=== PATIENT | male | born 1950 | race Caucasian/White ===

== ENCOUNTER 2016-12-18 16:09 | Inpatient (IN) | payer OTHER ==
--- NOTE | ~2016-12-18 | CR72 ---
[facility] A Service [facility] RADIOLOGY TEXT RESULTS PATIENT: EZE EVERETT LOCATION: [place] [address] : [birth year] UNIT #: [id number] AGE: [address]: Praful Worrell MD SEX: M ORDER DR: [id number] [place] [id number] I MR#: [id number] Acc #: [id number] NAME: EZE EVERETT. : 1950 SEX: M STUDY DATE/TIME: 12/18/2016 16:20 UNIT: SEDOF ROOM: [facility] STUDY DESCRIPTION: CR Chest Single View Portable Attending Physician: Apryl Carballo M.D. Ordering Physician: Robby Cruz M.D. Primary Care Physician: Sami Pizarro M.D. MEDICAL IMAGING REPORT This report is preliminary unless electronic signature is present. EXAM Portable chest HISTORY Diaphoresis with dizziness and shortness of breath onset today. TECHNIQUE Single view chest was obtained and compared with 01/02/2011 FINDINGS Mild cardiomegaly is again seen and unchanged. The lungs and interstitial markings are mildly prominent in the lower lung laws but unchanged. This could reflect some basilar fibrosis. Vascular markings are normal and no pleural fluid is seen. IMPRESSION Mild cardiomegaly with basilar fibrosis. No active disease. No evidence of congestive heart failure. Dictated by... Warner Goins M.D. THIS IS AN ELECTRONICALLY VERIFIED REPORT Warner Goins M.D. at 12/20/2016 11:01 AM RLF/candida TD: 12/19/2016 10:49 JOB #: [id number] MEDICAL IMAGING REPORT [facility] A Service [facility] RADIOLOGY TEXT RESULTS PATIENT: EZE EVERETT LOCATION: [facility] : [birth year] UNIT #: [id number] AGE: [address]: Praful Worrell MD SEX: M ORDER DR: Page 1 of 1
--- NOTE | ~2016-12-18 | HP ---
Unit #: [id number] #: [id number] Patient: EZE EVERETT [id number] [address] [place], [place] [address] [id number] I MR#: [id number] NAME: EZE EVERETT. ROOM: 561 Age: 66 Sex: M Admission Date: 12/18/2016 : 1950 Attending Physician: Praful Worrell M.D. Primary Care Physician: Sami Pizarro M.D. HISTORY AND PHYSICAL HISTORY OF PRESENT ILLNESS This is a 66-year-old white male who is known to Dr. Worrell and has a history of coronary artery disease with cardiac catheterization in 2007 which showed 70% stenosis in the PDA. There was nonobstructive disease in the circumflex of 40% to 50%. He was continued on medical therapy. He is known to have hypertension, hyperlipidemia, and diabetes. The patient comes to the emergency room after a syncopal episode. He was at work at [employer], taking out the [employer]. He had the sudden onset of diaphoresis and felt as if he might pass out. EMS was dispatched and it was found that he had a heart rate in the 20s. On arrival to the emergency room, he was normotensive. EKG showed marked sinus bradycardia with a rate of 40 beats per minute. Rhythm strip from the emergency room shows pauses up to 2 seconds. He was subsequently admitted. Upon further questioning, the patient states he has had similar episodes three times in the past one month. He had no loss of consciousness on any occasion. He denied chest pain, palpitations but complained of dizziness. PAST MEDICAL HISTORY 1. Coronary artery disease, status post cardiac catheterization January 2008 which showed circumflex artery 40% to 50% stenosis. Mid right coronary artery 30%. 70% at the origin of the PDA. EF of 50%. 2. Hypertension. 3. Hyperlipidemia. 4. COPD. 5. Diabetes mellitus type 2. PAST SURGICAL HISTORY 1. Perirectal abscess I and D. 2. Cyst removed from his back. HOME MEDICATIONS 1. Glucophage 1000 mg b.i.d. 2. Zoloft 50 mg daily. 3. Diclofenac 75 mg b.i.d. p.r.n. 4. Flomax 0.4 mg daily. 5. Zyrtec 10 mg daily. 6. Vitamin D2 50,000 units weekly. 7. Losartan/hydrochlorothiazide 100/25 mg daily. ALLERGIES No known drug allergies. SOCIAL HISTORY The patient is . He works at [employer]. He quit smoking 7 years Unit #: [id number] #: [id number] Patient: EZE EVERETT ago. No alcohol or illicit drug use. FAMILY HISTORY Negative for coronary artery disease. REVIEW OF SYSTEMS CONSTITUTIONAL: Negative for fever or chills. Reports no weight loss or weight gain. HEENT: No headache, hearing or vision changes. No difficulty with swallowing. Positive for dizziness. CARDIOVASCULAR: No symptoms of angina. Unaware of palpitations. Positive for paroxysmal nocturnal dyspnea. Positive for near syncope. RESPIRATORY: Negative for dyspnea, cough or hemoptysis. GASTROINTESTINAL: No abdominal pain, nausea or vomiting. No constipation or melena. EXTREMITIES: Negative for lower extremity edema. PHYSICAL EXAMINATION VITAL SIGNS: Blood pressure 145/78, heart rate 81, temperature 98.7. GENERAL: This is a 66-year-old well-developed white male who is in no acute distress. NEUROLOGIC: He is awake, alert, and oriented. There is no focal weaknesses. NECK: Trachea is midline. No thyromegaly or lymphadenopathy. No jugular venous distention. LUNGS: Diminished breath sounds with faint expiratory wheezes. No rales or rhonchi. HEART: S1, S2. Heart sounds normal. No murmurs, rubs, or clicks. Regular rate and rhythm. ABDOMEN: Soft, nontender. Bowel sounds are present. EXTREMITIES: Without leg edema. SKIN: Warm and dry. DIAGNOSTIC STUDIES LABORATORY: Sodium 141, potassium 4.1, BUN 24, creatinine 0.9, magnesium 1.4. CK total 40, MB 1.9, MB index 2.4, troponin less than 0.05 to 0.03. BNP 507. TSH 2.29, free T4 1.07. White count 16.2, hemoglobin 14.8, hematocrit 44.5, platelet count 172. IMAGING: Chest x-ray shows mild cardiomegaly with basilar fibrosis. No active disease. CARDIOVASCULAR: EKG shows marked sinus bradycardia with a rate of 40 beats per minute with premature ventricular complex. Questionable old inferior infarct. IMPRESSION 1. Near syncope. 2. Probable sick sinus syndrome. 3. Symptomatic bradycardia. 4. Hypertension. 5. Obesity. 6. Hyperlipidemia. 7. Nonobstructive coronary artery disease per cardiac catheterization in 2007. PLAN 1. Will rule out progression of the patient's coronary artery disease Unit #: [id number] #: [id number] Patient: EZE EVERETT with exercise Cardiolite stress test. 2. Start on lipid-lowering agent given history of heart disease. 3. Anticoagulate with aspirin. 4. TSH is normal. 5. Continue dopamine drip for rate control. 6. 2D echocardiogram will be obtained to evaluate left ventricular systolic function. 7. No troponin elevation or EKG changes to suggest an acute cardiac event. 8. Will have Dr. Otero to see the patient. Dictated by Reinaldo Zambrano A.P.R.N. for Eric Álvarez/lynnette TD: 12/21/2016 21:54 JOB #: [id number] HISTORY AND PHYSICAL Page 1 of 1 X Reinaldo Zambrano APRN X HISTORY AND PHYSICAL
--- NOTE | ~2016-12-18 | ST ---
Unit #: [id number] #: [id number] Patient: EZE EVERETT [id number] [facility]. [address] [address] [id number] I MR#: [id number] NAME: EZE EVERETT. : 1950 SEX: M STUDY DATE/TIME: 12/20/2016 UNIT: C5B ROOM: [facility] STUDY DESCRIPTION: Attending Physician: Praful Worrell M.D. Primary Care Physician: Sami Pizarro M.D. CARDIOLOGY REPORT EXAM EKG portion of Lexiscan Cardiolite stress test. REASON FOR EXAM Chest pain. DISCUSSION Baseline EKG reveals sinus rhythm with a ventricular rate of 83 beats per minute, nonspecific ST-T wave changes noted. The patient originally exercised on the treadmill according to You protocol for 3 minutes and 17 seconds; however, the treadmill had to be stopped due to severe shortness of breath and foot pain. He was switched to a Lexiscan. A total of 0.4 mg of Lexiscan was injected per protocol followed by Cardiolite. There were no complaints of chest pain. There was some underlying sinus bradycardia at baseline but no pauses or high-degree AV blocks. Maximal heart rate was 90 beats per minute with maximal blood pressure of 166/77 mmHg. Test was stopped due to protocol completion. IMPRESSION 1. Negative EKG portion of Lexiscan Cardiolite stress test. 2. There were no complaints of chest pain. 3. There were no sustained arrhythmias noted; however, the patient had some baseline sinus bradycardia. There were no high-degree AV blocks or pauses noted. 4. There were no ST or T wave changes to suggest ischemia. 5. Please correlate with Cardiolite images. Dictated by... Roxane Villa APRN for Eric Lackey TD: 12/20/2016 16:06 JOB #: [id number] Unit #: [id number] #: [id number] Patient: EZE EVERETT CARDIOLOGY REPORT Page 1 of 1 X CARDIOLOGY REPORT
--- NOTE | ~2016-12-18 | EKG ---
PATIENT: EZE EVERETT UNIT #: [id number] Ventricular Rate: 73 BPM Atrial Rate: 73 BPM P-R Interval: 144 ms QRS Duration: 96 ms Q-T Interval: 392 ms QTC Calculation(Bezet): 431 ms P [place]: 67 degrees Calculated R [place]: 45 degrees Calculated T [place]: 39 degrees Diagnosis Line: Normal sinus rhythm Diagnosis Line: Cannot rule out Inferior infarct , age Diagnosis Line: undetermined Diagnosis Line: Abnormal ECG Diagnosis Line: When compared with ECG of 02-JAN-2011 16:40, Diagnosis Line: Vent. rate has increased BY 24 BPM Diagnosis Line: Confirmed by SUNSHINE LEA MD ([id number]) on Diagnosis Line: 12/19/2016 8:04:09 AM INTERPRETING MD: LEONORA BAH
--- NOTE | ~2016-12-18 | CR72 ---
[facility] A Service of [facility] & [facility] RADIOLOGY TEXT RESULTS PATIENT: EZE EVERETT LOCATION: [facility] 561-01 : [birth year] UNIT #: [id number] AGE: [address]: Apryl Carballo MD SEX: M ORDER DR: [id number] [facility] [address] [facility]. [place], [place] [address] [id number] I MR#: [id number] #: [id number] NAME: EZE EVERETT. : 1950 SEX: M STUDY DATE/TIME: 12/19/2016 5:56 UNIT: [facility] ROOM: [facility] STUDY DESCRIPTION: CR Chest Single View Portable Attending Physician: Apryl Carballo M.D. Ordering Physician: Apryl Carballo M.D. Primary Care Physician: Sami Pizarro M.D. MEDICAL IMAGING REPORT This report is preliminary unless electronic signature is present EXAM Frontal chest 12/19/16 HISTORY Shortness of air, wheezing, dyspnea in a 66-year-old male. Dizziness, bradycardia, symptoms began on December 18. Hypertension. History of myocardial infarction and congestive heart failure. TECHNIQUE Frontal chest compared 12/18/2016 FINDINGS Cardiac silhouette is enlarged but stable. The vascularity demonstrates slight prominence of the perihilar interstitial markings in the mid and lower lung zones left greater than right. This may reflect an element of mild vascular congestion. Asymmetric edema, atelectasis or infiltrate suspected on the left. No dense consolidation, pneumothorax or effusion. There is old healed granulomatous disease. IMPRESSION 1. Cardiomegaly. Subtle increased interstitial prominence in the perihilar and lower lung zones left greater than right. This may reflect an element of mild vascular congestion with asymmetric edema, asymmetric atelectasis or less likely faint interstitial infiltrate. Correlate with volume status. No significant evidence of congestive heart failure. 2. No dense consolidation or effusion and no pneumothorax. Old healed granulomatous disease. Dictated by... Robby Birch M.D. THIS IS AN ELECTRONICALLY VERIFIED REPORT [facility] A Service of [facility] & [facility] RADIOLOGY TEXT RESULTS PATIENT: EZE EVERETT LOCATION: [facility] 561-01 : [birth year] UNIT #: [id number] AGE: [address]: Apryl Carballo MD SEX: M ORDER DR: Robby Birch M.D. at 12/19/2016 2:30 PM Soha TD: 12/19/2016 12:32 JOB #: [id number] MEDICAL IMAGING REPORT COPY
--- NOTE | ~2016-12-18 | CO ---
Unit #: [id number] #: [id number] Patient: EZE EVERETT [id number] [address] [place], [place] [address] [id number] I MR#: [id number] NAME: EZE EVERETT. ROOM: 561 Age: 66 Sex: M Admission Date: 12/18/2016 : 1950 Attending Physician: Praful Worrell M.D. Primary Care Physician: Sami Pizarro M.D. CONSULTATION REPORT HISTORY OF PRESENT ILLNESS Mr. Everett is a 66-year-old white male, who presented to the emergency room because of some dizziness and increased shortness of breath with chest pain. It had been a gradual onset and intermittent in nature. He was taking out the trash at work and had chest pain and more shortness of breath. He also admitted to some nausea, lightheadedness, and weak all over with sweating. He is dyspneic on minimal exertion. One of his family members in the room said he cannot walk up a flight of steps without getting very short of breath. He is a reformed smoker x7 years. He is maintained on albuterol and Symbicort. He says that he rarely uses his albuterol. He has not noticed any increased lower extremity edema. No cough or purulent sputum. No fever or chills. PAST MEDICAL HISTORY Significant for COPD, coronary artery disease, hyperlipidemia, hypertension, diabetes, hypercholesterolemia. HOME MEDICATIONS Include Glucophage, Zoloft, diclofenac, Flomax, Zyrtec, vitamin B12, losartan/hydrochlorothiazide, albuterol, Symbicort. ALLERGIES No known allergies. SOCIAL HISTORY Reformed smoker x7 years pack year history. No alcohol or illicit drugs. FAMILY HISTORY No history of lung disease. REVIEW OF SYSTEMS CONSTITUTIONAL: No fevers or chills. HEENT: No rhinorrhea, nasal congestion. PULMONARY: As noted. CARDIAC: As noted. GI: Some nausea. No vomiting. : Does have some BPH and does have a history of loud snoring. has to sleep on the sofa. He says he does not want to use CPAP. NEUROLOGIC: No unilateral weakness or numbness. SKIN: No rash. No swollen joints. PHYSICAL EXAMINATION GENERAL: White male, in no distress. Unit #: [id number] #: [id number] Patient: EZE EVERETT VITAL SIGNS: Blood pressure is 130/66, pulse 71, respiratory rate 18, temperature 100.2. HEENT: Normocephalic, atraumatic. Pupils are equal, round, and reactive. Sclerae nonicteric. Nasal passages patent. Posterior pharynx clear. Mallampati IV. NECK: Supple, thick. Trachea midline. No cervical or supraclavicular lymphadenopathy. LUNGS: Reveal some expiratory wheezes bilaterally. Some rales in the bases. CARDIAC: Regular rate and rhythm. Could not appreciate murmur, rub, or gallop. ABDOMEN: Protuberant, nontender. Bowel sounds present. No hepatosplenomegaly appreciated. EXTREMITIES: Without clubbing, cyanosis, or edema. Diminished peripheral pulses. SKIN: Warm and dry. PSYCHIATRIC: Affect calm. NEUROLOGIC: Awake, alert, and oriented x3. Cranial nerves grossly intact. Muscle strength symmetric bilaterally. DIAGNOSTIC STUDIES LABORATORY RESULTS: Reviewed. Chemistry unremarkable. Glucose 162, creatinine 0.9, magnesium 1.4, AST and ALT 97 and 171 respectively. No BNP is done. Cardiac enzymes were negative. White count 16,200, hematocrit 44.5, platelet count normal. Urinalysis unremarkable. IMPRESSION 1. Dyspnea likely related to chronic obstructive pulmonary disease with bronchospasm, possibly complicated by some degree of congestive heart failure or coexistent pulmonary fibrosis with evidence of rales on the current exam. 2. Chest pain, rule out angina. 3. Morbid obesity. 4. Probable obstructive sleep apnea. 5. Hypertension. 6. Diabetes. 7. Hyperlipidemia. PLAN We will check BNP to rule out component of congestive heart failure. We will treat COPD with inhaled bronchodilators, IV steroids. High-resolution CT scan of the chest for evaluation if BNP normal. He will also need outpatient evaluation for obstructive sleep apnea. Further evaluation pending this. Dictated by... Maximiliano Otero M.D. JIMMY/pari TD: 12/20/2016 02:33 JOB #: [id number] Unit #: [id number] #: [id number] Patient: EZE EVERETT CONSULTATION REPORT Page 1 of 1 X Maximiliano Otero MD CONSULTATION REPORT
--- NOTE | ~2016-12-18 | DS ---
Unit #: [id number] #: [id number] Patient: EZE EVERETT [id number] [place] [id number] [facility]. [place], [place] [address] [id number] I MR#: [id number] NAME: EZE EVERETT. ROOM: 561 Age: 66 Sex: M Admission Date: 12/18/2016 : 1950 Discharge Date: 12/22/2016 Attending Physician: Praful Worrell M.D. Primary Care Physician: Sami Pizarro M.D. DISCHARGE SUMMARY HOSPITAL COURSE This patient was admitted on 12/18/2016 after a sudden onset of diaphoresis and presyncope while working. His employer called EMS and he had a heart rate in the 20s. His EKG showed marked sinus bradycardia with a rate of 40 beats per minute. Cardiology was asked to admit him for further evaluation apparently because this was not an isolated episode. He has had several of these episodes over the past month. History of coronary artery disease, status post heart catheterization in 01/2008. He had a left circumflex artery 45% to 50% stenosis with mid right coronary artery disease of 30%, 70% at the origin of the PDA. He had an EF of 50% also with a history of hyperlipidemia, hypertension, COPD, and diabetes. During this hospitalization, he had an exercise Cardiolite stress test that showed no ischemia. He also had a 2D echo, which showed normal LV function, EF of 50% to 55%, mild concentric LVH, and mildly dilated left atrium. During his hospitalization for his acute exacerbation of COPD, we consulted Dr. Ashby and Dr. Otero's group for Pulmonary for COPD exacerbation. He was managed very temporarily on a dopamine drip, however, his blood pressure was elevated and that was stopped not long after it was initiated. He has been asymptomatic since 12/19/2016. He was diuresed and his respiratory status improved. He will be getting an event recorder sent to his home as an outpatient, and was recommended for an outpatient sleep study. Other testing while he was here includes chest x-ray on 12/19/2016 showed cardiomegaly, mild vascular congestion, asymmetric edema or asymmetric atelectasis. No significant evidence of congestive heart failure. No dense consolidation or effusion. No pneumothorax. Old healed granulomatous disease. Laboratory testing was also done today. His chemistry showed sodium 135, potassium 4.3, chloride 99, CO2 of 30, BUN was 39, creatinine was 0.9, and glucose was 192. Magnesium was 2. To note, he did have hypomagnesium back on 12/19/2016 and it was replaced. He has been stable for the last 3 days. Troponin was 0.03 today and 0.04, 0.03, and 0.02 in subsequent days. BNP was checked on 12/19/2016 and it was 507. TSH was checked and it was 2.29. On 12/22/2016, white blood cell count was 12, hemoglobin was 15.4, hematocrit 46.9, and platelet count 243. Urinalysis was done and it was unremarkable on 12/18/2016. DISCHARGE MEDICATIONS Include the following: Zyrtec as per home dose of 10 mg daily, Lopid 600 mg b.i.d.; Hyzaar (losartan/hydrochlorothiazide) 100/25 one tablet daily, this is a duplicate home med dose; Lipitor is a new medication, 10 mg p.o. at bedtime; Flomax per home dose of 0.4 mg p.o. daily; Tylenol 650 mg every 6 hours as needed for pain; Spiriva, new medication 18 mcg inhaled Unit #: [id number] #: [id number] Patient: MRAGUERITEEZE Sarah daily; Zoloft per home dose of 50 mg p.o. daily; metformin 1000 mg b.i.d., diclofenac home dose 75 mg b.i.d. as needed for pain; aspirin 81 daily; and vitamin D2 per home dose of 50,[address] Otero has also written him prednisone taper 40 mg p.o. x3 days, 30 mg p.o. x3 days, 20 mg p.o. x3 days, and then 10 mg p.o. x3 days. Prescriptions have been provided for prednisone taper, Lipitor 10 mg at bedtime, Lopid 600 mg b.i.d., and Spiriva inhaler. DISCHARGE INSTRUCTIONS He was advised to have scheduled outpatient sleep study and follow up with Dr. Otero in 2 to 3 weeks. Follow up has been made with Dr. Worrell. His appointment has been scheduled for 02/07/2017 at 2:45 p.m. He is stable to be discharged home with diet education for heart healthy and diabetic diet to lose weight and wear home O2. He currently does not smoke. He was advised to avoid smoke, lose weight, and take medications as prescribed. Otherwise, the patient will be going home with supplemental O2. This patient may need outpatient permanent pacemaker at a later date based on his event recorder results. Dictated by... Ca Peace APRN for Eric Álvarez TD: 12/23/2016 10:56 JOB #: [id number] DISCHARGE SUMMARY Page 1 of 1 X X DISCHARGE SUMMARY
--- NOTE | ~2016-12-18 | TH ---
Unit #: [id number] #: [id number] Patient: EZE EVERETT [id number] [address] [address] [id number] I MR#: [id number] NAME: EZE EVERETT. : 1950 SEX: M STUDY DATE/TIME: 12/20/2016 UNIT: C5B ROOM: [facility] STUDY DESCRIPTION: Attending Physician: Praful Worrell M.D. Primary Care Physician: Sami Pizarro M.D. CARDIOLOGY REPORT EXAM Lexiscan Cardiolite stress test, nuclear portion. PROCEDURE Using technetium 99m labeled Cardiolite, rest and stress SPECT images were obtained. Multiple SPECT images were obtained in various views including horizontal and vertical long axis and short axis views of the left ventricle. Images were obtained by gated SPECT method. The patient was administered 12 mCi of Cardiolite at rest. The patient was administered 33.7 mCi of Cardiolite after Lexiscan infusion was completed. On the stress images, there is normal perfusion noted. The rest images showed normal perfusion. Comparing rest and stress images, there is no stress-induced ischemia noted. The left ventricular ejection fraction is calculated to be 65%. There is no focal wall motion abnormality seen. CONCLUSION 1. No stress-induced ischemia noted. 2. The left ventricular ejection fraction is calculated to be 65%. 3. There is no focal wall motion abnormality seen. 4. Normal Lexiscan Cardiolite stress test. 5. Technically very limited study due to significant gut uptake. Clinical correlation is requested. Dictated by... Eric Lackey TD: 12/20/2016 16:49 JOB #: [id number] Unit #: [id number] #: [id number] Patient: EZE EVERETT CARDIOLOGY REPORT Page 1 of 1 X Casi Gutierrez MD <ELECTRONICALLY SIGNED> 04/22/17 [id number] CARDIOLOGY REPORT
--- NOTE | ~2016-12-18 | EKG ---
PATIENT: EZE EVERETT UNIT #: [id number] Ventricular Rate: 40 BPM Atrial Rate: 40 BPM P-R Interval: 144 ms QRS Duration: 96 ms Q-T Interval: 464 ms QTC Calculation(Bezet): 378 ms P [place]: 64 degrees Calculated R [place]: 46 degrees Calculated T [place]: 39 degrees Diagnosis Line: Marked sinus bradycardia with sinus arrhythmia Diagnosis Line: with occasional Premature ventricular complexes Diagnosis Line: Non Diagnostic Q in Lead Inferior leads Diagnosis Line: Abnormal ECG Diagnosis Line: When compared with ECG of 02-JAN-2011 16:40, Diagnosis Line: Premature ventricular complexes are now Present Diagnosis Line: Confirmed by RUTHANN DAMIAN MD ([id number]) on 12/23/2016 Diagnosis Line: 9:38:22 AM INTERPRETING MD: RICKIE BAH
[2016-12-18 15:52] LABS: BASOPHIL# 0.1 X10e3 (0-0.3); BASOPHIL% 0.8 % (0-2.5); DIFF IND NO; EOSINOPHIL# 0.2 X10e3 (0-0.7); EOSINOPHIL% 1.2 % (0.0-7.0); HEMATOCRIT 46.6 % (38.0-50.0); HEMOGLOBIN 15.3 gm/dL (13.0-16.0); LYMPHOCYTE# 2.5 X10e3 (1.0-3.5); LYMPHOCYTE% 19.1 % (17.0-45.0); MEAN CORPUSCULAR HEMOGLOBIN 28.2 PG (28-34); MEAN CORPUSCULAR HGB CONC 32.8 g/dL (30-36); MEAN PLATELET VOLUME 10.3 FL (6.5-11.5); MONOCYTE# 1.1 X10e3 (0-1.0); MONOCYTE% 8.1 % (3.0-12.0); NEUTROPHIL# 9.1 X10e3 (1.5-7.1); NEUTROPHIL% 70.8 % (40-75); PLATELET COUNT 175 X10e3 (140-420); RED BLOOD COUNT 5.42 X10e (3.90-5.60); RED CELL DISTRIBUTION WIDTH 14.4 % (11.0-15.5); WHITE BLOOD COUNT 12.9 X10e3 (4.0-10.5)
[~2016-12-18 16:09] MED LIST: AUGMENTIN PO; B/P MED; CHOL MED; FLOMAX0.4 M1 PO; FLOMAX0.4 MG PO; HCTZ PO; LASIX PO; LIPITOR PO; LOPRESSOR PO; METFORMIN PO; METOPROLOL/HCTZ PO; PERCOCET5/325 PO; VITAMIN D250000 UNIT PO; VOLTAREN75 MG PO; ZOCOR PO; ZOLOFT PO; ZYRTEC10 M1 PO
[2016-12-18 16:14] LABS: ALKALINE PHOSPHATASE 71 U/L (32-92); ALT (SGPT) 171 U/L (10-40); AST (SGOT) 97 U/L (10-42); BILIRUBIN, DIRECT 0.1 mg/dL (0.0-0.2); BILIRUBIN,INDIRECT 0.4 mg/dL (0.0-0.9); BILIRUBIN,TOTAL 0.5 mg/dL (0.2-2.0); BLOOD UREA NITROGEN 34 mg/dL (9-23); CALCIUM SERUM 9.9 mg/dL (8.4-10.2); CARBON DIOXIDE 28 mmol/L (22-31); CHLORIDE 101 mmol/L (100-111); GLOM FILT RATE Estimated ABOVE60 mL/min (>60); GLUCOSE FASTING 172 mg/dL (70-110); POTASSIUM 3.7 mmol/L (3.5-5.1); SODIUM 136 mmol/L (135-145)
[2016-12-18 16:18] LABS: POC - CKMB 2.1 ng/mL (0.0-7.9); POC - MYOGLOBIN 75.8 ng/mL (0.0-169.0); POC - TROPONIN <0.05 ng/mL (<=0.05)
[2016-12-18] MEDS ORDERED: LOSARTAN-HCTZ1 EAC1 PO (16:31)
[2016-12-18 16:55] LABS: URINE SOURCE CLEAN CATCH
[2016-12-18 17:00] LABS: MICRO INDICATED? NO; URINE APPEARANCE CLEAR; URINE BILIRUBIN NEG (NEG); URINE BLOOD NEG (NEG); URINE COLOR YELLOW; URINE GLUCOSE NEG (NORM); URINE KETONE NEG (NEG); URINE LEUKOCYTE ESTERASE NEG (NEG); URINE NITRATE NEG (NEG); URINE PROTEIN NEG (NEG)
[2016-12-18 17:03] LABS: POC - MYOGLOBIN 78.1 ng/mL (0.0-169.0); POC - TROPONIN <0.05 ng/mL (<=0.05)
[2016-12-19 01:52] LABS: POTASSIUM 3.9 mmol/L (3.5-5.1)
[2016-12-19 08:17] LABS: BASOPHIL# 0.1 X10e3 (0-0.3); BASOPHIL% 0.4 % (0-2.5); EOSINOPHIL# 0.1 X10e3 (0-0.7); EOSINOPHIL% 0.3 % (0.0-7.0); HEMATOCRIT 44.5 % (38.0-50.0); HEMOGLOBIN 14.8 gm/dL (13.0-16.0); LYMPHOCYTE# 1.3 X10e3 (1.0-3.5); LYMPHOCYTE% 8.3 % (17.0-45.0); MEAN CELL VOLUME 85.5 FL (83-96); MEAN CORPUSCULAR HEMOGLOBIN 28.4 PG (28-34); MEAN CORPUSCULAR HGB CONC 33.3 g/dL (30-36); MEAN PLATELET VOLUME 10.3 FL (6.5-11.5); MONOCYTE# 2.5 X10e3 (0-1.0); MONOCYTE% 15.5 % (3.0-12.0); NEUTROPHIL# 12.2 X10e3 (1.5-7.1); NEUTROPHIL% 75.5 % (40-75); PLATELET COUNT 172 X10e3 (140-420); RED BLOOD COUNT 5.21 X10e (3.90-5.60); RED CELL DISTRIBUTION WIDTH 14.4 % (11.0-15.5); WHITE BLOOD COUNT 16.2 X10e3 (4.0-10.5)
[2016-12-19 08:19] LABS: DIFF IND YES
[2016-12-19 08:41] LABS: CK TOTAL 42 IU/L (36-174)
[2016-12-19 08:55] LABS: ANISOCYTOSIS SL; PLATELET ESTIMATE NORMAL (NORMAL)
[2016-12-19 09:02] LABS: BLOOD UREA NITROGEN 24 mg/dL (9-23); BUN/CREATININE RATIO 26.66; CALCIUM SERUM 10.1 mg/dL (8.4-10.2); CARBON DIOXIDE 27 mmol/L (22-31); CHLORIDE 104 mmol/L (100-111); CREATININE SERUM 0.9 mg/dL (0.6-1.4); GLOM FILT RATE Estimated ABOVE60 mL/min (>60); GLUCOSE FASTING 162 mg/dL (70-110); MAGNESIUM 1.4 mg/dL (1.6-3.0); POTASSIUM 4.1 mmol/L (3.5-5.1); SODIUM 141 mmol/L (135-145)
[2016-12-19 13:42] LABS: CK TOTAL 40 IU/L (36-174)
[2016-12-20 13:44] LABS: HEMATOCRIT 44.7 % (38.0-50.0); HEMOGLOBIN 14.9 gm/dL (13.0-16.0); MEAN CORPUSCULAR HEMOGLOBIN 28.6 PG (28-34); MEAN CORPUSCULAR HGB CONC 33.3 g/dL (30-36); MEAN PLATELET VOLUME 10.3 FL (6.5-11.5); RED BLOOD COUNT 5.2 X10e (3.90-5.60); RED CELL DISTRIBUTION WIDTH 14.5 % (11.0-15.5); WHITE BLOOD COUNT 14.2 X10e3 (4.0-10.5)
[2016-12-20 14:10] LABS: BLOOD UREA NITROGEN 32 mg/dL (9-23); BUN/CREATININE RATIO 35.55; CALCIUM SERUM 9.8 mg/dL (8.4-10.2); CARBON DIOXIDE 29 mmol/L (22-31); CHLORIDE 97 mmol/L (100-111); CREATININE SERUM 0.9 mg/dL (0.6-1.4); GLOM FILT RATE Estimated ABOVE60 mL/min (>60); GLUCOSE FASTING 249 mg/dL (70-110); POTASSIUM 4.2 mmol/L (3.5-5.1); SODIUM 136 mmol/L (135-145)
[2016-12-21 06:46] LABS: HEMATOCRIT 43.2 % (38.0-50.0); HEMOGLOBIN 14.1 gm/dL (13.0-16.0); MEAN CELL VOLUME 86.1 FL (83-96); MEAN CORPUSCULAR HEMOGLOBIN 28.1 PG (28-34); MEAN CORPUSCULAR HGB CONC 32.7 g/dL (30-36); RED BLOOD COUNT 5.01 X10e (3.90-5.60); RED CELL DISTRIBUTION WIDTH 14.4 % (11.0-15.5); WHITE BLOOD COUNT 12.4 X10e3 (4.0-10.5)
[2016-12-21 07:58] LABS: BLOOD UREA NITROGEN 39 mg/dL (9-23); BUN/CREATININE RATIO 43.33; CALCIUM SERUM 9.7 mg/dL (8.4-10.2); CARBON DIOXIDE 30 mmol/L (22-31); CHLORIDE 99 mmol/L (100-111); CREATININE SERUM 0.9 mg/dL (0.6-1.4); GLOM FILT RATE Estimated ABOVE60 mL/min (>60); GLUCOSE FASTING 192 mg/dL (70-110); POTASSIUM 4.3 mmol/L (3.5-5.1); SODIUM 135 mmol/L (135-145)
[2016-12-22 06:55] LABS: HEMATOCRIT 46.9 % (38.0-50.0); HEMOGLOBIN 15.4 gm/dL (13.0-16.0); MEAN CORPUSCULAR HEMOGLOBIN 28.2 PG (28-34); MEAN CORPUSCULAR HGB CONC 32.7 g/dL (30-36); MEAN PLATELET VOLUME 9.9 FL (6.5-11.5); RED BLOOD COUNT 5.46 X10e (3.90-5.60); RED CELL DISTRIBUTION WIDTH 14.4 % (11.0-15.5)
[2016-12-22] MEDS ORDERED: LOPID600 MG PO (14:43)
[2016-12-22] MEDS ORDERED: ACETAMINOPHEN PO (14:44)
[2016-12-22] MEDS ORDERED: LIPITOR PO (14:44)
[2016-12-22] MEDS ORDERED: CHEWABLE ASPIRI81 MG PO (14:45)
[2016-12-22] MEDS ORDERED: SPIRIVA18 MCG INH (14:45)
[2016-12-22] MEDS ORDERED: PREDNISONE PO (14:46)
== END 2016-12-22 17:05 | disposition home or self-care (01) | DRG 308 ==
LOC: SED 16:09 → SEDOF 17:48 → C5B 23:45
PROVIDERS: Emergency Medicine; Internal Medicine Cardiovascular Disease; Nurse Practitioner; Nurse Practitioner Family
PROC: B24BYZZ Ultrasonography of Heart with Aorta using Other Contrast (ICD-10-PCS; principal; 2016-12-19)
DX: I49.5 Sick sinus syndrome (principal); J96.01 Acute respiratory failure with hypoxia; J44.1 Chronic obstructive pulmonary disease with (acute) exacerbation; I10 Essential (primary) hypertension; E11.9 Type 2 diabetes mellitus without complications; D72.829 Elevated white blood cell count, unspecified; J84.10 Pulmonary fibrosis, unspecified; E78.5 Hyperlipidemia, unspecified; Z79.84 Long term (current) use of oral hypoglycemic drugs; Z87.891 Personal history of nicotine dependence; R07.9 Chest pain, unspecified; E66.01 Morbid (severe) obesity due to excess calories; G47.33 Obstructive sleep apnea (adult) (pediatric); I25.119 Atherosclerotic heart disease of native coronary artery with unspecified angina pectoris; F41.9 Anxiety disorder, unspecified; E83.42 Hypomagnesemia; Z68.33 Body mass index [BMI] 33.0-33.9, adult
CPT/HCPCS: 36415; 71010; 78452; 80048; 80076; 81003; 82550; 82553; 82947; 83735; 83874; 83880; 84132; 84439; 84443; 84484; 85025; 85027; 93005; 93017; 93306; 94640; 94664; 94760; 96361; 96365; 96375; 99285; A9500; J1265; J1610; J1815; J1940; J2405; J2785; J2920; J3475